=== PATIENT | female | born 1970 | race Caucasian/White ===

== ENCOUNTER 2016-07-11 15:35 | Outpatient (CLI) | payer MEDICAID | END 2016-07-11 15:36 | disposition home or self-care (01) | DX: R10.2 Pelvic and perineal pain (principal) ==

== ENCOUNTER 2016-07-21 16:59 | Outpatient (CLI) | payer MEDICAID | END 2016-07-21 17:00 | disposition home or self-care (01) | DX: D25.1 Intramural leiomyoma of uterus (principal) ==

== ENCOUNTER 2016-08-12 13:18 | Outpatient (CLI) | payer MEDICAID ==
--- NOTE | 2016-08-13 09:27 | XRAY Report ---
TWO-VIEW CHEST: 08/12/2016 CLINICAL INDICATION: Abnormal weight loss. FINDINGS: Frontal and lateral views of the chest demonstrate a normal cardiac silhouette. The lungs are clear. A small hiatal hernia is incidentally noted. No effusion or pneumothorax is present. IMPRESSION: NO EVIDENT ETIOLOGY FOR PATIENT'S WEIGHT LOSS. JOB #: [id number] EXT JOB #:[id number]
== END 2016-08-12 13:19 | disposition home or self-care (01) ==
LOC: DI.S 13:18
PROVIDERS: ATTEND Nurse Practitioner Family
DX: R63.4 Abnormal weight loss (principal)
CPT/HCPCS: 71020

== ENCOUNTER 2016-08-13 08:00 | Outpatient (CLI) | payer MEDICAID | END 2016-08-13 23:59 | disposition home or self-care (01) | LOC: LAB.R 08:00 | PROVIDERS: ATTEND Nurse Practitioner Family | DX: R63.4 Abnormal weight loss (principal) | CPT/HCPCS: 82270 ==

== ENCOUNTER 2016-08-13 08:56 | Outpatient (CLI) | payer MEDICAID ==
[2016-08-13 18:11] LABS: ALBUMIN/GLOBULIN RATIO 1.7 (1.0-2.2); BILIRUBIN,TOTAL 0.4 mg/dL (0.2-1.0); BUN - BLOOD UREA NITROGEN 13 mg/dL (6-20); CALCIUM 8.8 mg/dL (8.5-10.3); CARBON DIOXIDE - CO2 26 mmol/L (21-32); CHLORIDE 106 mmol/L (101-111); CHOL/HDL RATIO 2.5 (<4.4); CHOLESTEROL 230 mg/dL; CREATININE 0.6 mg/dL (0.4-1.0); GFR - MDRD 107 (>89); GLUCOSE 82 mg/dL (70-100); HDL CHOLESTEROL 91 mg/dL; LDL/HDL RATIO 1.4 (<4.4); POTASSIUM 3.8 mmol/L (3.5-5.0); SODIUM 139 mmol/L (135-145); TOTAL PROTEIN 6.9 g/dL (6.7-8.2); TRIGLYCERIDES 64 mg/dL; VLDL CHOLESTEROL 13 mg/dL
[2016-08-13 18:19] LABS: BASOPHILS % (AUTO) 0.5 %; EOSINOPHILS # (AUTO) 0.2 10^3/uL (0.0-0.7); EOSINOPHILS % (AUTO) 2.5 %; HCT - HEMATOCRIT 44.5 % (37.0-47.0); HGB - HEMOGLOBIN 14.8 g/dL (12.0-16.0); LYMPHOCYTES # (AUTO) 2.3 10^3/uL (1.5-3.5); LYMPHOCYTES % (AUTO) 24.2 %; MEAN CORPUSCULAR HEMOGLOBIN 31.6 pg (27.0-31.0); MEAN CORPUSCULAR HGB CONC 33.3 g/dL (32.0-36.0); MEAN CORPUSCULAR VOLUME 95.1 fL (81.0-99.0); MEAN PLATELET VOLUME 11.9 fL (7.9-10.8); MONOCYTES # (AUTO) 0.6 10^3/uL (0.0-1.0); MONOCYTES % (AUTO) 5.8 %; NEUTROPHILS # (AUTO) 6.3 10^3/uL (1.5-6.6); NUCLEATED RED BLOOD CELLS AUTO 0.1 /100WBC; RED BLOOD COUNT 4.68 10^6/uL (4.20-5.40); RED CELL DISTRIBUTION WIDTH 15.3 % (12.0-15.0); UNCORRECTED WHITE BLOOD COUNT 9.5 x10^3/uL; WHITE BLOOD COUNT 9.5 x10^3/uL (4.8-10.8)
== END 2016-08-13 08:57 | disposition home or self-care (01) ==
LOC: LAB.F 08:56
PROVIDERS: ATTEND Nurse Practitioner Family
DX: Z12.11 Encounter for screening for malignant neoplasm of colon (principal)
CPT/HCPCS: 36415; 80053; 80061; 84443; 85025

== ENCOUNTER 2016-08-21 13:58 | Outpatient (CLI) | payer MEDICAID ==
--- NOTE | 2016-08-21 16:08 | Mammography Report ---
DIGITAL DIAGNOSTIC BILATERAL MAMMOGRAM: 08/21/2016 CLINICAL INDICATION: Bilateral tenderness. This is the patient's baseline mammogram. TECHNIQUE: Bilateral CC, laterally exaggerated CC, MLO, true lateral views. The patient was unable to identify a site of localized tenderness, so no markers were placed. FINDINGS: The breasts demonstrate heterogeneously dense fibroglandular parenchyma bilaterally. No s uspicious masses, clustered microcalcifications, or regions of architectural distortion are identifie d. Punctate, typically benign calcifications are present. IMPRESSION: BENIGN FINDINGS. RECOMMENDATION: Routine annual screening unless otherwise clinically indicated. BI-RADS category 2, benign findings. STANDARD QUALIFYING STATEMENTS 1. This examination was reviewed with the aid of Computer-Aided Detection (CAD). 2. A negative or benign imaging report should not delay biopsy if clinically suspicious findings are present. Consider surgical consultation if warranted. More than 5% of cancers are not identified by i maging. 3. Dense breasts may obscure an underlying neoplasm. JOB #: [id number] EXT JOB #:[id number]
== END 2016-08-21 13:59 | disposition home or self-care (01) ==
LOC: DI 13:58
PROVIDERS: ATTEND Nurse Practitioner Family
DX: N64.4 Mastodynia (principal)
CPT/HCPCS: 77066

== ENCOUNTER 2017-01-05 22:07 | Outpatient (CLI) | payer MEDICAID | END 2017-01-05 22:08 | disposition critical access hospital (66) | LOC: EMS 22:07 | PROVIDERS: ATTEND Surgery | DX: R07.9 Chest pain, unspecified (principal); M25.511 Pain in right shoulder; W17.81XA Fall down embankment (hill), initial encounter; Y92.832 Beach as the place of occurrence of the external cause | CPT/HCPCS: A0425; A0427 ==

== ENCOUNTER 2017-01-05 22:42 | Emergency (ER) | payer MEDICAID ==
--- NOTE | 2017-01-05 23:41 | ED Physician Documentation ---
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 Patient fell approximately 10 feet. She admits to drinking alcohol beverages tonight. Patients friend says she witnessed patient had approximately two minute loss of consciousness. Patient complains of pain in back chest and neck. Review of Systems Eyes: reports: Reviewed and negative Cardiac: reports: Chest pain / pressure Respiratory: reports: Reviewed and negative GI: reports: Reviewed and negative Musculoskeletal: reports: Neck pain, Back pain. denies: Extremity pain, Joint pain Neurologic: reports: Reviewed and negative PD PAST MEDICAL HISTORY - Past Medical History Cardiovascular: None Respiratory: None Neuro: None Endocrine/Autoimmune: None GI: None NURSE CLINICIAN: None : None HEENT: None Psych: None Musculoskeletal: None Derm: None - Past Surgical History Past Surgical History: Yes - Present Medications Home Medications: Ambulatory Orders Medication Instructions Recorded Confirmed Hydrocodone/Acetaminophen 1 - 2 each PO Q6HR PRN #20 tablet 01/06/17 [Hydrocodon-Acetaminophen 5-325] Ondansetron Odt [Zofran Odt] 4 mg TL Q6H PRN #10 tablet 01/06/17 - Allergies Allergies/Adverse Reactions: Allergies Allergy/AdvReac Type Severity Reaction Status Date / Time No Known Drug Allergies Allergy Verified 12/07/13 23:31 - Social History Does the pt smoke?: Yes Smoking Status: Current every day smoker Does the pt drink ETOH?: Yes Does the pt have substance abuse?: No - Immunizations Immunizations are current?: No Immunizations: TDAP >10years/unknown - POLST Patient has POLST: No PD ED PE NORMAL - Vitals Vital signs reviewed: Yes - General General: Alert and oriented X 3, Well developed/nourished, Other (appears to be in painful distress; lying on side (left lateral decubitus) because of severe pain when lying supine) - HEENT HEENT: Atraumatic, PERRL, EOMI - Neck Neck: Supple, no meningeal sign, No bony TTP - Cardiac Cardiac: RRR, No murmur - Respiratory Respiratory: No respiratory distress, Clear bilaterally - Abdomen Abdomen: Soft - Back Back: No CVA TTP - Derm Derm: Normal color, Warm and dry - Extremities Extremities: Normal ROM s pain, No edema - Neuro Neuro: Alert and oriented X 3, 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, No motor deficit, No sensory deficit, Normal speech PD ED PE EXPANDED - Back Back: Vertebral tenderness (midline, mid-level thoracic ) - Extremities Extremities: Other (tenderness, superficial abrasions, faint echymosis second and third fingers at proximal phalanges, dorsal surface) Results - Vitals Vitals: Vital Signs - 24 hr 01/05/17 01/06/17 22:42 01:17 Temperature 36.6 C Heart Rate 67 84 Respiratory 24 18 Rate Blood Pressure 131/81 H 123/71 O2 Saturation 100 96 Oxygen O2 Source Room air - Rads (name of study) CT head Radiology: Prelim report reviewed, See rad report CT c-spine Radiology: Prelim report reviewed, See rad report CXR Radiology: Prelim report reviewed, See rad report left hand xrays Radiology: Prelim report reviewed, See rad report PD MEDICAL DECISION MAKING - ED course Complexity details: reviewed results, re-evaluated patient, considered differential, d/w patient Departure - Departure Disposition: 01 Home, Self Care Clinical Impression: Fall, Thoracic vertebral fracture Condition: Good Instructions: ED Fx Comp Vertebral, ED Contusion Chest Wall Follow-Up: Pratibha Mo ARNP [Primary Care Provider] - (3-5 days ) Prescriptions: Hydrocodone/Acetaminophen [Hydrocodon-Acetaminophen 5-325] 1 - 2 each PO Q6HR PRN #20 tablet PRN Reason: Pain Ondansetron Odt [Zofran Odt] 4 mg TL Q6H PRN #10 tablet PRN Reason: Nausea / Vomiting Discharge Date/Time: 01/06/17 02:20
[2017-01-05] MEDS ORDERED: MORPHINE 2 MG/ML SYRINGE IVP STA (23:54)
[2017-01-06] MEDS ORDERED: MORPHINE 2 MG/ML SYRINGE ONE (00:02)
--- NOTE | 2017-01-06 01:06 | XRAY Preliminary Report ---
Exam: XR CHEST 2 VIEW PA/LAT IMPRESSION: 1. Bibasilar atelectasis. 2. Mild to moderate compression fracture at T6. [facility] SITE ID: [id number]
--- NOTE | 2017-01-06 01:07 | CT Preliminary Report ---
Exam: CT HEAD W/O IMPRESSION: Normal head CT. [facility] SITE ID: [id number]
--- NOTE | 2017-01-06 01:08 | XRAY Report ---
EXAM: CHEST RADIOGRAPHY EXAM DATE: 01/06/2017 12:45 AM. CLINICAL HISTORY: Fall, chest pain. COMPARISON: 08/12/2016. TECHNIQUE: 2 views. FINDINGS: Lungs/Pleura: Bibasilar atelectasis. No pleural effusion. No pneumothorax. Mediastinum: Heart and mediastinal contours are unremarkable. Other: Mild to moderate compression fracture at T6. IMPRESSION: 1. Bibasilar atelectasis. 2. Mild to moderate compression fracture at T6. [facility] Referring Provider Line: [phone] SITE ID: [id number]
--- NOTE | 2017-01-06 01:09 | XRAY Preliminary Report ---
Exam: XR HAND 3 VIEW LT IMPRESSION: 1. No acute fracture or dislocation seen. [facility] SITE ID: [id number]
[2017-01-06] MEDS ORDERED: MORPHINE 2 MG/ML SYRINGE IVP STA (01:12)
--- NOTE | 2017-01-06 01:12 | XRAY Report ---
EXAM: LEFT HAND RADIOGRAPHY EXAM DATE: 01/06/2017 12:54 AM. CLINICAL HISTORY: Left hand pain after injury. COMPARISON: None. TECHNIQUE: 3 views. FINDINGS: Bones: No acute fracture seen. Joints: No dislocation. Joint spaces are fairly well preserved. Soft Tissues: Grossly unremarkable. IMPRESSION: 1. No acute fracture or dislocation seen. [facility] Referring Provider Line: [phone] SITE ID: [id number]
--- NOTE | 2017-01-06 01:13 | CT Preliminary Report ---
Exam: CT CERVICAL SPINE W/O IMPRESSION: No acute cervical spine fracture. [facility] SITE ID: [id number]
--- NOTE | 2017-01-06 01:16 | CT Report ---
EXAM: CT HEAD EXAM DATE: 01/06/2017 12:46 AM. CLINICAL HISTORY: Fall, loss of consciousness. COMPARISON: None. TECHNIQUE: Multiaxial CT images were obtained from the foramen magnum to the vertex. IV contrast: Non e. Reformats: Coronal. In accordance with CT protocol optimization, one or more of the following dose reduction techniques w ere utilized for this exam: automated exposure control, adjustment of mA and/or KV based on patient s ize, or use of iterative reconstructive technique. FINDINGS: Parenchyma: No intraparenchymal hemorrhage. No evidence of mass, midline shift, or CT findings of inf arction. Damian-white differentiation is distinct. Extraaxial Spaces: Normal for age. No subdural or epidural collections identified. Ventricles: Normal in size and position. Sinuses and orbits: Imaged paranasal sinuses, orbits, and mastoids show no significant abnormality. Bones: No evidence of fracture or calvarial defect. IMPRESSION: Normal head CT. [facility] Referring Provider Line: [phone] SITE ID: [id number]
[2017-01-06 01:18] VITALS: BP 123/71
--- NOTE | 2017-01-06 01:18 | CT Report ---
EXAM: CT CERVICAL SPINE WITHOUT CONTRAST DATE: 01/06/2017 12:45 AM HISTORY: Neck pain, fall. COMPARISONS: None. TECHNIQUE: Thin-section axial images were acquired of the cervical spine without contrast. Post-proce ssing: Coronal and sagittal reformats. Other: None. In accordance with CT protocol optimization, one or more of the following dose reduction techniques w ere utilized for this exam: automated exposure control, adjustment of mA and/or KV based on patient s ize, or use of iterative reconstructive technique. FINDINGS: Alignment: Degenerative grade 1 anterolisthesis is present at C4-C5 measuring 12 mm. There is no sco liosis. Bones: No fracture or bone lesion. Interspace Levels/Facets: C1-C2: Mild degenerative changes are present anteriorly without craniocervical stenosis. C2-C3: Unremarkable. C3-C4: Unremarkable. C4-C5: Unremarkable. C5-C6: A posterior disk osteophyte complex is present without spinal canal stenosis. The foramina are patent. C6-C7: Unremarkable. C7-T1: Unremarkable. Musculature: Normal. No fatty atrophy. Other: No acute abnormality is seen in the remaining soft tissues of the neck. Mild emphysematous celi nges are noted in the right lung apex. IMPRESSION: No acute cervical spine fracture. [facility] Referring Provider Line: [phone] SITE ID: [id number]
[2017-01-06] MEDS ORDERED: MORPHINE 10 MG/ML VIAL ONE (01:19)
[2017-01-06] MEDS ORDERED: HYDROcod/ACET 5/325 Prepack 6 PO STA (02:04)
[2017-01-06] MEDS ORDERED: HYDROcod/ACET 5/325 Prepack 6 PO ONE (02:11)
== END 2017-01-06 02:20 | disposition home or self-care (01) ==
LOC: EDUNIT# → EDBD → SUPCPDRO 22:42 → ED 22:42
DX: S22.050A Wedge compression fracture of T5-T6 vertebra, initial encounter for closed fracture (principal); W17.89XA Other fall from one level to another, initial encounter; Y92.098 Other place in other non-institutional residence as the place of occurrence of the external cause; F17.200 Nicotine dependence, unspecified, uncomplicated
CPT/HCPCS: 70450; 71020; 72125; 73130; 96374; 96376; 99283; 99284; J2270

== ENCOUNTER 2017-08-20 11:28 | Outpatient (CLI) | payer MEDICAID ==
--- NOTE | 2017-08-21 14:40 | Mammography Report ---
SCREENING MAMMOGRAM: 08/20/2017 COMPARISON: 08/21/2016. TECHNIQUE: Bilateral digital CC, exaggerated CC and MLO projections. FINDINGS: The breast tissue is heterogeneously dense. There is no dominant mass, architectural distortion, skin thickening, suspicious microcalcifications, or interval change. IMPRESSION: NEGATIVE. BIRADS 1. RECOMMENDATION: Suggest return to routine screening in 12 months. STANDARD QUALIFYING STATEMENTS: 1. This examination was reviewed with the aid of Computer-Aided Detection (CAD). 2. A negative or benign imaging report should not delay biopsy if clinically suspicious findings are present. Consider surgical consultation if warranted. More than 5% of cancers are not identified by imaging. 3. Dense breasts may obscure an underlying neoplasm. TD: 08/21/2017 12:54
== END 2017-08-20 11:29 | disposition home or self-care (01) ==
LOC: DI 11:28
PROVIDERS: ATTEND Obstetrics & Gynecology
DX: Z12.31 Encounter for screening mammogram for malignant neoplasm of breast (principal)
CPT/HCPCS: 77067

== ENCOUNTER 2018-02-09 12:34 | Emergency (ER) | payer MEDICAID ==
[2018-02-09 12:50] VITALS: BP 142/91
[2018-02-09 13:16] LABS: GLUCOSE, URINE (UA) 100 mg/dL (NEGATIVE); KETONES,URINE (UA) NEGATIVE (NEGATIVE); LEUKOCYTE ESTERASE, URINE TRACE (NEGATIVE); NITRITE,URINE POSITIVE (NEGATIVE); UROBILINOGEN,URINE 4 E.U./dL (NORMAL)
[2018-02-09 13:25] LABS: CLARITY,URINE HAZY (CLEAR); HCG UR QUAL NEGATIVE
[2018-02-09 13:27] LABS: BILIRUBIN,URINE NEGATIVE (NEGATIVE); ICTOTEST,URINE NEGATIVE
[2018-02-09 13:32] LABS: BACTERIA,URINE Few /HPF (None Seen); SQUAMOUS EPITHELIAL CELL,UR MOD Squamous (<= Few)
--- NOTE | 2018-02-09 14:38 | ED Physician Documentation ---
History of Present Illness - Stated complaint Stated Complaint: FEMALE - Chief complaint Chief Complaint: General - History obtained from History obtained from: Patient - History of Present Illness Timing: Yesterday (1 day low abd pain and dysuria and hematuria. Subj fever at home.) Review of Systems Constitutional: reports: Fever. denies: Chills Nose: reports: Reviewed and negative Throat: reports: Reviewed and negative GI: reports: Abdominal Pain. denies: Nausea, Vomiting, Diarrhea : reports: Dysuria, Frequency, Hematuria PD PAST MEDICAL HISTORY - Past Medical History Past Medical History: No Cardiovascular: None Respiratory: None Endocrine/Autoimmune: None GI: None BENCH ASSEMBLY INSPECTOR: None : None HEENT: None Psych: None Musculoskeletal: None Derm: None - Past Surgical History Past Surgical History: No - Present Medications Home Medications: Ambulatory Orders Medication Instructions Recorded Confirmed Phenazopyridine HCl [Pyridium] 200 mg PO TID PRN #6 tablet 02/09/18 Sulfamethoxazole/Trimethoprim 1 each PO BID #14 tablet 02/09/18 [Sulfamethoxazole-Tmp Ds Tablet] - Allergies Allergies/Adverse Reactions: Allergies Allergy/AdvReac Type Severity Reaction Status Date / Time No Known Drug Allergies Allergy Verified 02/09/18 12:50 - Social History Does the pt smoke?: Yes Smoking Status: Current every day smoker Does the pt drink ETOH?: Yes Does the pt have substance abuse?: No - Immunizations Immunizations are current?: No Immunizations: TDAP >10years/unknown - POLST Patient has POLST: No PD ED PE NORMAL - Vitals Vital signs reviewed: Yes - General General: Alert and oriented X 3, No acute distress - Abdomen Abdomen: Normal bowel sounds, Soft, Non tender - Back Back: No CVA TTP, No spinal TTP - Extremities Extremities: No edema, No calf tenderness / cord Results - Vitals Vitals: Vital Signs - 24 hr 02/09/18 12:48 Temperature 36.9 C Heart Rate 78 Respiratory 16 Rate Blood Pressure 142/91 H O2 Saturation 99 Oxygen O2 Source Room air - Labs Labs: Laboratory Tests 02/09/18 13:00 Urine Color ORANGE Urine Clarity HAZY Urine pH 6.0 Ur Specific [place] 1.020 Urine Protein Urine Glucose (UA) 100 H Urine Ketones NEGATIVE Urine Occult Blood Urine Nitrite POSITIVE H Urine Bilirubin NEGATIVE Urine Urobilinogen 4 H Ur Leukocyte Esterase TRACE H Urine RBC 6-10 H Urine WBC 4-5 Ur Squamous Epith Cells MOD Squamous H Urine Bacteria Few Ur Microscopic Review INDICATED Urine Culture Comments NOT INDICATED Urine HCG, Qual NEGATIVE Departure - Departure Disposition: 01 Home, Self Care Clinical Impression: Pyelonephritis Condition: Good Record reviewed to determine appropriate education?: Yes Instructions: Pyelonephritis Dc Prescriptions: Phenazopyridine HCl [Pyridium] 200 mg PO TID PRN #6 tablet PRN Reason: dysuria Sulfamethoxazole/Trimethoprim [Sulfamethoxazole-Tmp Ds Tablet] 1 each PO BID #14 tablet Comments: Call your doctor to arrange a follow-up appointment, make the next available appointment. In the interim, return anytime if worse or if new symptoms develop. Your blood pressure was elevated today on check into the emergency department. This does not mean that you have hypertension, it is a common phenomenon to come to the emergency department and have elevated blood pressure. I recommend that you see your primary care physician within the week to have it rechecked when you are feeling better.
[2018-02-09] MEDS ORDERED: SULFAMETH/TRIMETH DS 800/160 MG TABLET PO STA (14:46)
[2018-02-09] MEDS ORDERED: PHENAZOPYRIDINE 100 MG TABLET PO STA (14:46)
== END 2018-02-09 14:56 | disposition home or self-care (01) ==
LOC: ED 12:34
DX: N12 Tubulo-interstitial nephritis, not specified as acute or chronic (principal); R03.0 Elevated blood-pressure reading, without diagnosis of hypertension; F17.200 Nicotine dependence, unspecified, uncomplicated
CPT/HCPCS: 81001; 81025; 99283; A9270; 81003; 87086

== ENCOUNTER 2018-02-12 08:00 | Outpatient (CLI) | payer MEDICAID | END 2018-02-12 23:59 | disposition home or self-care (01) | LOC: LAB.R 08:00 | PROVIDERS: ATTEND Obstetrics & Gynecology | DX: N93.0 Postcoital and contact bleeding (principal) | CPT/HCPCS: 87491; 87591 ==

== ENCOUNTER 2018-09-15 11:44 | Outpatient (CLI) | payer MEDICAID ==
[2018-09-15 19:34] LABS: BASOPHILS # (AUTO) 0.1 10^3/uL (0.0-0.1); BASOPHILS % (AUTO) 0.6 %; EOSINOPHILS # (AUTO) 0.5 10^3/uL (0.0-0.7); EOSINOPHILS % (AUTO) 4.3 %; HGB - HEMOGLOBIN 16.5 g/dL (12.0-16.0); LYMPHOCYTES # (AUTO) 3.5 10^3/uL (1.5-3.5); LYMPHOCYTES % (AUTO) 33.4 %; MEAN CORPUSCULAR HEMOGLOBIN 33.1 pg (27.0-31.0); MEAN CORPUSCULAR HGB CONC 32.7 g/dL (32.0-36.0); MEAN PLATELET VOLUME 12.4 fL (7.9-10.8); MONOCYTES # (AUTO) 0.6 10^3/uL (0.0-1.0); MONOCYTES % (AUTO) 5.7 %; NEUTROPHILS # (AUTO) 5.8 10^3/uL (1.5-6.6); NEUTROPHILS % (AUTO) 55.7 %; PLT - PLATELET COUNT 232 10^3/uL (130-450); RED BLOOD COUNT 4.99 10^6/uL (4.20-5.40); RED CELL DISTRIBUTION WIDTH 14.2 % (12.0-15.0); WHITE BLOOD COUNT 10.4 x10^3/uL (4.8-10.8)
[2018-09-15 20:01] LABS: ALBUMIN 4.4 g/dL (3.2-5.5); ALBUMIN/GLOBULIN RATIO 1.4 (1.0-2.2); ALKALINE PHOSPHATASE 55 IU/L (42-121); ALT ALANINE AMINOTRANSFERASE 34 IU/L (10-60); AST ASPARTATE AMINOTRANSFERASE 27 IU/L (10-42); BILIRUBIN,TOTAL 0.7 mg/dL (0.2-1.0); BUN - BLOOD UREA NITROGEN 11 mg/dL (6-20); CALCIUM 9.3 mg/dL (8.5-10.3); CARBON DIOXIDE - CO2 25 mmol/L (21-32); CHLORIDE 105 mmol/L (101-111); CHOL/HDL RATIO 4.5 (<4.4); CHOLESTEROL 309 mg/dL; CREATININE 0.7 mg/dL (0.4-1.0); GFR - MDRD 89 (>89); GLUCOSE 103 mg/dL (70-100); HDL CHOLESTEROL 68 mg/dL; LDL CHOLESTEROL,CALCULATED 198 mg/dL; LDL/HDL RATIO 2.9 (<4.4); SODIUM 141 mmol/L (135-145); TOTAL PROTEIN 7.5 g/dL (6.7-8.2); VLDL CHOLESTEROL 43 mg/dL
== END 2018-09-15 11:45 | disposition home or self-care (01) ==
LOC: LAB.WCP 11:44
PROVIDERS: ATTEND Physician Assistant
DX: Z00.00 Encounter for general adult medical examination without abnormal findings (principal)
CPT/HCPCS: 36415; 80053; 80061; 83721; 84443; 85025

== ENCOUNTER 2018-10-12 08:00 | Outpatient (CLI) | payer MEDICAID ==
[2018-10-12 13:08] LABS: HB2 TOTAL 16.6 g/dL; HEMOGLOBIN A1C 0.53 g/dL; HEMOGLOBIN A1C % 5.1 % (4.6-6.2)
[2018-10-12 13:19] LABS: CHOL/HDL RATIO 2.7 (<4.4); CHOLESTEROL 235 mg/dL; GLUCOSE 88 mg/dL (70-100); HDL CHOLESTEROL 87 mg/dL; LDL CHOLESTEROL,CALCULATED 127 mg/dL; LDL/HDL RATIO 1.5 (<4.4); VLDL CHOLESTEROL 21 mg/dL
[2018-10-12 13:25] LABS: THYROID STIMULATING HORMONE 2.32 uIU/mL (0.34-5.60)
[2018-10-12 13:27] LABS: FREE T4 (FREE THYROXINE) 0.86 ng/dL (0.58-1.64)
[2018-10-12 13:36] LABS: FOLATE 10.16 ng/mL (5.90 - >24.8)
== END 2018-10-12 23:59 | disposition home or self-care (01) ==
LOC: LAB.WCP 08:00
PROVIDERS: ATTEND Obstetrics & Gynecology
DX: E74.39 Other disorders of intestinal carbohydrate absorption (principal); E78.00 Pure hypercholesterolemia, unspecified; R53.83 Other fatigue; D53.9 Nutritional anemia, unspecified
CPT/HCPCS: 36415; 80061; 82607; 82746; 82947; 83036; 83721; 84439; 84443

== ENCOUNTER 2018-10-20 16:04 | Outpatient (CLI) | payer MEDICAID ==
--- NOTE | 2018-10-21 08:57 | Mammography Report ---
Reason: MAMMOGRAPHIC SCREENING FOR BREAST CANCER Procedure Date: 10/20/2018 Accession Number: [id number] / [id number] Procedure: [facility] - Screening Mammo w/Alfonso CPT Code: FULL RESULT: EXAM: Screening Mammo w/Alfonso DATE: 10/20/2018 4:37 PM CLINICAL HISTORY: Screening encounter. Family history of breast cancer in the mother at the age of 65. TECHNIQUE: (B) - Bilateral CC, laterally exaggerated CC, MLO views were obtained. COMPARISON: 08/20/2017 through 08/21/2016. PARENCHYMAL PATTERN: (D) - The breast(s) demonstrate(s) heterogeneously dense fibroglandular parenchyma. FINDINGS: A few tomographically well circumscribed nodules which demonstrate typical reniform shape and contain central fat on 3-D imaging are noted and consistent with typically benign lymph nodes. There are no suspicious masses, calcifications, or areas of distortion. IMPRESSION: Benign findings. BI-RADS category 2. RECOMMENDATION: (ANNUAL) - Recommend routine annual screening mammography. BI-RADS CATEGORY: (2) - Benign Findings. STANDARD QUALIFYING STATEMENTS: 1. This examination was not reviewed with the aid of Computer-Aided Detection (CAD). 2. A negative or benign imaging report should not preclude biopsy if clinically suspicious findings are present. 3. Dense breasts may obscure an underlying neoplasm. 4. This examination was reviewed with the aid of 3D breast imaging (tomosynthesis).
== END 2018-10-20 16:05 | disposition home or self-care (01) ==
LOC: DI 16:04
PROVIDERS: ATTEND Obstetrics & Gynecology
DX: Z12.31 Encounter for screening mammogram for malignant neoplasm of breast (principal); Z80.3 Family history of malignant neoplasm of breast
CPT/HCPCS: 77063; 77067

== ENCOUNTER 2018-10-20 16:06 | Outpatient (CLI) | payer MEDICAID ==
--- NOTE | 2018-10-21 13:52 | XRAY Report ---
Reason: OTHER OVARIAN CYST,POLYCTHEMIA, TOBACCO DEPENDENCE Procedure Date: 10/20/2018 Accession Number: [id number] / [id number] Procedure: XR - Chest 2 View X-Ray CPT Code: 09682 FULL RESULT: EXAM: CHEST RADIOGRAPHY EXAM DATE: 10/20/2018 05:08 PM. CLINICAL HISTORY: OTHER OVARIAN CYST,POLYCTHEMIA, TOBACCO DEPENDENCE. COMPARISON: CHEST 2 VIEW PA/LAT 01/05/2017 11:59 PM. TECHNIQUE: 2 views. FINDINGS: Lungs/Pleura: No focal opacities evident. No pleural effusion. No pneumothorax. Normal volumes. Mediastinum: Heart and mediastinal contours are unremarkable. Other: None. IMPRESSION: Normal 2-view chest radiography. [facility]
--- NOTE | 2018-10-22 09:18 | Ultrasound Report ---
Reason: OTHER OVARIAN CYST,POLYCTHEMIA, TOBACCO DEPENDENCE Procedure Date: 10/20/2018 Accession Number: [id number] / [id number] Procedure: US - Pelvic w/Transvaginal CPT Code: FULL RESULT: EXAM: PELVIC ULTRASOUND EXAM DATE: 10/20/2018 05:40 PM. CLINICAL HISTORY: fibroids. Other ovarian cyst. Polycthemia. Tobacco dependence. COMPARISON: PELVIC W/TRANSVAGINAL 07/21/2016 5:10 PM ABDOMEN/PELVIS W/ 03/01/2015 8:38 AM. TECHNIQUE: Realtime transabdominal pelvic scan performed to identify the uterus and adnexa and as an overview of other pelvic structures, followed by transvaginal scan to provide greater detail of the uterus and adnexa, with static image documentation. FINDINGS: Uterus: 7.2 x 3.4 x 5.9 cm, volume 78.9 cc. Anteverted position. Normal overall size and echotexture. Masses: Fibroids, left posterior submucosal 2.8 x 2.7 x 2.4 cm, anterior fundal intramural 0.6 x 0.5 x 0.7 cm. Endometrium: 6 mm. Normal. Cervix: Unremarkable. Right Ovary: 2.4 x 2.0 x 1.5 cm, volume 3.7 cc. Normal echotexture and blood flow. Largest follicle measures 1.9 x 1.3 x 1.6 m. Left Ovary: 3.4 x 2.2 x 2.2 cm, volume 8.6 cc. Normal echotexture and blood flow. Largest follicle measures 1.2 x 0.9 x 0.9 cm. Free Fluid: None. Other: None. IMPRESSION: Uterine fibroids, similar to prior ultrasound, otherwise unremarkable pelvic ultrasound. [facility]
== END 2018-10-20 16:07 | disposition home or self-care (01) ==
LOC: DI 16:06
PROVIDERS: ATTEND Obstetrics & Gynecology
DX: Z12.31 Encounter for screening mammogram for malignant neoplasm of breast (principal); D75.1 Secondary polycythemia; F17.200 Nicotine dependence, unspecified, uncomplicated; D25.0 Submucous leiomyoma of uterus; D25.1 Intramural leiomyoma of uterus
CPT/HCPCS: 71046; 76830; 76856

== ENCOUNTER 2019-03-14 10:47 | Outpatient (CLI) | payer MEDICAID ==
[2019-03-14 13:37] LABS: BASOPHILS # (AUTO) 0.1 10^3/uL (0.0-0.1); BASOPHILS % (AUTO) 0.7 %; EOSINOPHILS # (AUTO) 0.3 10^3/uL (0.0-0.7); EOSINOPHILS % (AUTO) 2.8 %; HGB - HEMOGLOBIN 15.7 g/dL (12.0-16.0); LYMPHOCYTES # (AUTO) 3.4 10^3/uL (1.5-3.5); LYMPHOCYTES % (AUTO) 34.7 %; MEAN CORPUSCULAR HEMOGLOBIN 33.3 pg (27.0-31.0); MEAN CORPUSCULAR HGB CONC 33.2 g/dL (32.0-36.0); MEAN CORPUSCULAR VOLUME 100.2 fL (81.0-99.0); MEAN PLATELET VOLUME 12.5 fL (7.9-10.8); MONOCYTES # (AUTO) 0.6 10^3/uL (0.0-1.0); MONOCYTES % (AUTO) 6.5 %; NEUTROPHILS # (AUTO) 5.4 10^3/uL (1.5-6.6); NEUTROPHILS % (AUTO) 54.7 %; PLT - PLATELET COUNT 212 10^3/uL (130-450); RED BLOOD COUNT 4.72 10^6/uL (4.20-5.40); RED CELL DISTRIBUTION WIDTH 12.9 % (12.0-15.0); WHITE BLOOD COUNT 9.8 x10^3/uL (4.8-10.8)
[2019-03-14 14:03] LABS: ALBUMIN 4.4 g/dL (3.2-5.5); ALBUMIN/GLOBULIN RATIO 1.7 (1.0-2.2); BILIRUBIN,TOTAL 0.6 mg/dL (0.2-1.0); CALCIUM 9.3 mg/dL (8.5-10.3); CREATININE 0.6 mg/dL (0.4-1.0)
[2019-03-14 14:48] LABS: FOLLICLE STIMULATING HORMONE 87.83 mIU/mL
== END 2019-03-14 23:59 | disposition home or self-care (01) ==
LOC: LAB.WCP 10:47
PROVIDERS: ATTEND Physician Assistant
DX: N95.1 Menopausal and female climacteric states (principal); R53.83 Other fatigue
CPT/HCPCS: 36415; 80053; 83001; 84443; 85025

== ENCOUNTER 2019-10-31 08:04 | Day surgery (SDC) | payer MEDICAID ==
[2019-10-31] MEDS ORDERED: fentaNYL 250 MCG/5 ML VIAL IVP ONE (08:05)
[2019-10-31] MEDS ORDERED: MIDAZOLAM 2 MG/2 ML VIAL IVP ONE (08:05)
[2019-10-31] MEDS ORDERED: LACTATED RINGERS 1,000 ML IV ONE ×2 (08:10→09:52)
[2019-10-31 10:31] VITALS: BP 111/86
== END 2019-10-31 08:05 | disposition home or self-care (01) ==
LOC: SDS 08:04
PROVIDERS: ATTEND Internal Medicine Gastroenterology
PROC: 0DBL8ZZ Excision of Transverse Colon, Via Natural or Artificial Opening Endoscopic (ICD-10-PCS; principal; 2019-10-31 09:15)
DX: Z12.11 Encounter for screening for malignant neoplasm of colon (principal); D12.3 Benign neoplasm of transverse colon; J45.909 Unspecified asthma, uncomplicated; F17.210 Nicotine dependence, cigarettes, uncomplicated
CPT/HCPCS: 45380; J3010; J7120

== ENCOUNTER 2020-05-21 15:13 | Emergency (ER) | payer MEDICAID ==
--- NOTE | 2020-05-21 15:38 | ED Physician Documentation ---
PD HPI UPPER EXT INJURY - Stated complaint Stated Complaint: RT WRIST PX - Chief complaint Chief Complaint: Ext Problem - History obtained from History obtained from: Patient - Additonal information Additional information: Patient comes emergency department chief complaint of sudden onset of pain on the flexor aspect of her right wrist, with apparent contusion. Patient states she was not doing anything strenuous with her wrist. She was just sitting there using the computer and controlling the mouse when she felt a sudden twinge of pain. She denies any direct trauma. No history of any wrist problems that she knows of. Patient states her hand felt cold, but not numb, after the incident. Patient states symptoms started approximately 1 hour ago. She states she is mainly come here because she is worried that she may have a blood clot. No other complaints at this time. Review of Systems Ten Systems: 10 systems reviewed and negative Constitutional: reports: Reviewed and negative Eyes: reports: Reviewed and negative Ears: reports: Reviewed and negative Nose: reports: Reviewed and negative Throat: reports: Reviewed and negative Cardiac: reports: Reviewed and negative Respiratory: reports: Reviewed and negative GI: reports: Reviewed and negative : reports: Reviewed and negative Skin: reports: Other (Wrist contusion) Musculoskeletal: reports: Joint pain Neurologic: reports: Reviewed and negative Psychiatric: reports: Reviewed and negative Endocrine: reports: Reviewed and negative Immunocompromised: reports: Reviewed and negative PD PAST MEDICAL HISTORY - Past Medical History Past Medical History: Yes Cardiovascular: Hypertension, High cholesterol Respiratory: Asthma Neuro: None Endocrine/Autoimmune: None GI: None SUPERVISOR PICKING CREW: None : None HEENT: None Psych: None Musculoskeletal: Chronic back pain Derm: Other - Past Surgical History Past Surgical History: No /SUPERVISOR PICKING CREW: Other - Present Medications Home Medications: Ambulatory Orders Medication Instructions Recorded Confirmed No Known Home Medications 05/21/20 05/21/20 - Allergies Allergies/Adverse Reactions: Allergies Allergy/AdvReac Type Severity Reaction Status Date / Time No Known Drug Allergies Allergy Verified 05/21/20 15:17 - Social History Does the pt smoke?: Yes Smoking Status: Current every day smoker Does the pt drink ETOH?: Yes Does the pt have substance abuse?: No - Immunizations Immunizations are current?: No Immunizations: TDAP >10years/unknown - POLST Patient has POLST: No PD ED PE NORMAL - Vitals Vital signs reviewed: Yes - General General: Alert and oriented X 3, No acute distress, Well developed/nourished - HEENT HEENT: Atraumatic, PERRL, EOMI, Moist mucous membranes - Neck Neck: Supple, no meningeal sign - Cardiac Cardiac: Strong equal pulses - Respiratory Respiratory: No respiratory distress - Derm Derm: Normal color, No rash, Other (Right hand is cool, but has good color and brisk cap refill. Small, approximately 1.5 cm x 2 cm diameter hematoma in the midline flexor aspect of right wrist.) - Extremities Extremities: No deformity, Normal ROM s pain, No edema, Other (Mild tenderness over small hematoma that is noted above on right wrist. Otherwise no point tenderness.) - Neuro Neuro: Alert and oriented X 3, No motor deficit, No sensory deficit (Specifically intact right hand.) - Psych Psych: Normal mood, Normal affect Results - Vitals Vitals: Vital Signs - 24 hr 05/21/20 05/21/20 15:17 15:53 Temperature 36.5 C 36.6 C Heart Rate 117 H 100 Respiratory 18 16 Rate Blood Pressure 170/121 H 146/98 H O2 Saturation 100 100 Oxygen O2 Source Room air - Rads (name of study) R wrist XR Radiology: Final report received, EMP read indepedently, See rad report (neg) PD MEDICAL DECISION MAKING - ED course Complexity details: reviewed results, re-evaluated patient, considered differential, d/w patient ED course: Patient was worked up with an x-ray of her right wrist, which was negative for fracture or dislocation. I am not sure what has caused this apparently spontaneous hematoma formation, though suspect a small strain related to normal activity. I discussed with the patient that she may apply ice packs, and that this is a benign condition not related to a DVT. Patient is advised that symptoms will be self-limited. Departure - Departure Disposition: 01 Home, Self Care Clinical Impression: Strain of wrist Qualifiers: Encounter type: initial encounter Laterality: right Qualified Code(s): S66.911A - Strain of unspecified muscle, fascia and tendon at wrist and hand level, right hand, initial encounter Condition: Stable Instructions: ED Contusion Soft Tissue Comments: You appear to have strained the soft tissues of your wrist. The bones look great, and there is no evidence of a blood clot. You have a superficial blood collection which may clot up to some degree, but this is not related to the clots in the deep veins of your arms and legs. Clot formation within these can be dangerous, as it can cause a blood clot to break loose and go to your lungs. However, the superficial bruise that you have is not at risk for this at all. You may use an ice pack for 20 to 30 minutes at a time, several times a day, to help with the pain and swelling. This condition will be expected to resolve on its own within the next week or two. Avoid doing any strenuous work with your wrist until it is feeling better. Discharge Date/Time: 05/21/20 15:53
--- NOTE | 2020-05-21 15:43 | XRAY Report ---
PROCEDURE: Wrist 3 View RT INDICATIONS: r wrist pain TECHNIQUE: 3 views of the wrist were acquired. COMPARISON: None FINDINGS: Bones: No fractures or dislocations. No suspicious bony lesions. There is widening of the scapholu hector interval. Scaphoid view: Not requested Soft tissues: No suspicious soft tissue calcifications. IMPRESSION: 1. Mild widening of the scapholunate interval, which could indicate ligamentous injury. MRI arthrogra phy could be performed for further assessment, if clinically indicated. 2. No acute fracture. No osseous lesion. If symptoms and/or clinical suspicion for pathology continue , further assessment with repeat plain films, or advanced imaging (e.g., CT, MRI, or bone scan) is re commended for further assessment. Reviewed by: Anil Sheikh MD on 05/21/2020 3:41 PM PST Approved by: Anil Sheikh MD on 05/21/2020 3:41 PM PST Station ID: [id number]
[2020-05-21 15:54] VITALS: BP 146/98
== END 2020-05-21 15:53 | disposition home or self-care (01) ==
LOC: ED 15:13
DX: S66.911A Strain of unspecified muscle, fascia and tendon at wrist and hand level, right hand, initial encounter (principal); S60.211A Contusion of right wrist, initial encounter; X58.XXXA Exposure to other specified factors, initial encounter; Y93.89 Activity, other specified; I10 Essential (primary) hypertension; F17.200 Nicotine dependence, unspecified, uncomplicated
CPT/HCPCS: 99283; 99284

== ENCOUNTER 2020-05-22 08:00 | Outpatient (CLI) | payer MEDICAID ==
[2020-05-22 18:05] LABS: BASOPHILS # (AUTO) 0.1 10^3/uL (0.0-0.1); BASOPHILS % (AUTO) 0.6 %; EOSINOPHILS # (AUTO) 0.3 10^3/uL (0.0-0.7); EOSINOPHILS % (AUTO) 2.6 %; HCT - HEMATOCRIT 47.4 % (37.0-47.0); HGB - HEMOGLOBIN 16.1 g/dL (12.0-16.0); LYMPHOCYTES # (AUTO) 3.3 10^3/uL (1.5-3.5); LYMPHOCYTES % (AUTO) 34.4 %; MEAN CORPUSCULAR HEMOGLOBIN 34.5 pg (27.0-31.0); MEAN CORPUSCULAR VOLUME 101.7 fL (81.0-99.0); MEAN PLATELET VOLUME 12.9 fL (7.9-10.8); MONOCYTES # (AUTO) 0.5 10^3/uL (0.0-1.0); MONOCYTES % (AUTO) 4.8 %; NEUTROPHILS # (AUTO) 5.5 10^3/uL (1.5-6.6); NEUTROPHILS % (AUTO) 57.2 %; PLT - PLATELET COUNT 198 10^3/uL (130-450); RED BLOOD COUNT 4.66 10^6/uL (4.20-5.40); RED CELL DISTRIBUTION WIDTH 12.8 % (12.0-15.0); WHITE BLOOD COUNT 9.6 x10^3/uL (4.8-10.8)
[2020-05-22 18:07] LABS: PT - PROTHROMBIN TIME 11.1 secs (9.9-12.6)
== END 2020-05-22 23:59 | disposition home or self-care (01) ==
LOC: LAB.WCP 08:00
PROVIDERS: ATTEND Family Medicine
DX: R23.8 Other skin changes (principal)
CPT/HCPCS: 36415; 85025; 85610

== ENCOUNTER 2020-08-15 14:24 | Outpatient (CLI) | payer MEDICAID ==
--- NOTE | 2020-08-15 17:13 | MRI Report ---
PROCEDURE: Wrist RT W/O INDICATIONS: RT HAND PAIN TECHNIQUE: Noncontrast coronal proton density fast spin echo and T2 fast spin echo with fat saturation; coronal 3-D gradient echo, axial T1 spin echo and T2 fast spin echo with fat saturation, sagittal T1 spin ech o through the wrist. COMPARISON: Wrist radiograph dated 05/21/2020. FINDINGS: Image quality: Diagnostic. Patient motion is noted. Bones and cartilage: The carpal bones are normally aligned. No bone marrow contusions or fractures. No evidence for avascular necrosis. Mild wrist joint osteoarthritic changes are seen, more prominen t along radial aspect of the wrist. Carpal ligaments: The scapholunate and lunotriquetral ligaments appear intact. In the absence of in tra-articular contrast, the extrinsic carpal ligaments are not well identified. On sagittal images, the pisohamate ligament appears intact. Triangular fibrocartilage complex: Focal area of signal abnormality involving medial periphery of reg ular fibrocartilage near its ulnar insertion is seen concerning for focal TFCC perforation. The adjac ent meniscal homolog appears normal in the absence of intra-articular contrast. The extensor carpi u lnaris tendon is thickened with subtle intrasubstance T2 hyperintense signal near ulnar styloid tip c oncerning for tendinosis and low-grade partial-thickness tear. Tendons and soft tissues: The carpal tunnel structures appear normal, including the median nerve. T he ulnar nerve appears normal within Guyon?s canal. All six extensor tendon compartments demonstrate normal morphology, without pathologic tendon sheath fluid. No soft tissue ganglion cysts. IMPRESSION: 1. 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 No marrow edema . No fracture or dislocation. 2. Scapholunate or lunotriquetral ligaments are grossly intact. 3. Finding is concerning for subtle triangular fibrocartilage perforation near its ulnar insertion. 4. Tendinosis and low-grade partial-thickness tear involving extensor carpi ulnaris tendon at the lev el of ulnar styloid tip. Reviewed by: Hector Ricardo MD on 08/15/2020 5:11 PM PDT Approved by: Hector Ricardo MD on 08/15/2020 5:11 PM PDT Station ID: [id number]
== END 2020-08-15 14:25 | disposition home or self-care (01) ==
LOC: DI 14:24
PROVIDERS: ATTEND Family Medicine
DX: M19.031 Primary osteoarthritis, right wrist (principal); S66.821A Laceration of other specified muscles, fascia and tendons at wrist and hand level, right hand, initial encounter; R93.6 Abnormal findings on diagnostic imaging of limbs

== ENCOUNTER 2021-04-15 10:53 | Outpatient (CLI) | payer OTHER, MEDICAID ==
--- NOTE | 2021-04-15 13:01 | XRAY Report ---
PROCEDURE: Shoulder 3 View RT INDICATIONS: SHOULDER PAIN TECHNIQUE: Views of the location were acquired. COMPARISON: None. FINDINGS: Bones: No fractures or dislocations. No suspicious bony lesions. Soft tissues: No suspicious soft tissue calcifications. IMPRESSION: Normal right shoulder Reviewed by: Skyler Mims on 04/15/2021 1:00 PM [facility] Approved by: Skyler Mims on 04/15/2021 1:00 PM [facility] Station ID: [id number]
== END 2021-04-15 10:54 | disposition home or self-care (01) ==
LOC: DI 10:53
DX: M25.511 Pain in right shoulder (principal)